=== PATIENT | female | born 1995 | race American Indian/Alaskan Native ===

== ENCOUNTER 2018-07-01 20:51 | Emergency (ER) | payer SELFPAY ==
[2018-07-01 21:40] LABS: Basophils # (Auto) 0.1 K/mm3 (0.0-0.1); Basophils % (Auto) 0.6 % (0.0-1.8); Eosinophils # (Auto) 0.1 K/mm3 (0.0-0.4); Eosinophils % (Auto) 1.1 % (0.0-4.3); Hematocrit 39.8 % (30.3-42.9); Hemoglobin 13.1 gm/dl (10.1-14.3); Lymphocytes # (Auto) 3.6 K/mm3 (1.2-5.4); Lymphocytes % (Auto) 43.6 % (13.4-35.0); Mean Corpuscular HGB Conc 33 % (30-34); Mean Corpuscular Volume 91 fl (79-97); Monocytes # (Auto) 0.6 K/mm3 (0.0-0.8); Monocytes % (Auto) 7.4 % (0.0-7.3); Platelet Count 333 K/mm3 (140-440); Red Blood Count 4.35 M/mm3 (3.65-5.03); Red Cell Distribution Width 13.5 % (13.2-15.2)
[2018-07-01 21:54] LABS: Alanine Aminotransferase 22 units/L (7-56); Albumin 4.2 g/dL (3.9-5); BUN/Creatinine Ratio 15; Blood Urea Nitrogen 12 mg/dL (7-17); Hemolysis Index 8
[2018-07-01] MEDS ORDERED: NACL 0.9% 1000 ML 1,000 ML IV ONE (23:10)
[2018-07-01] MEDS ORDERED: TORADOL IV ONE (23:10)
[2018-07-01] MEDS ORDERED: ZOFRAN IV ONE (23:10)
--- NOTE | 2018-07-01 23:17 | Emergency Department Report ---
ED Abdominal Pain HPI - General Chief Complaint: Abdominal Pain Stated Complaint: EMESIS/STOMACH PAIN/DIARRHEA Time Seen by Provider: 07/01/18 23:09 Source: patient Mode of arrival: Ambulatory Limitations: No Limitations - History of Present Illness Initial Comments: Patient 3-year-old female history of Crohn's diverticulitis status post appendectomy and gallstones and pancreatitis who presents with abdominal pain nausea and vomiting 3 days history of same last flare was 06/04/2018 patient is followed by [facility] last colonoscopy and EGD 1 month ago demonstrated Crohn's only no active diverticulitis patient denies GI bleeding at this time abdominal pain is 5/10 cramping aching S EtOH use was 1 month ago per patient has no fevers or chills patient states unable to tolerate by mouth. MD Complaint: abdominal pain Onset/Timin -: days(s) Location: LUQ Radiation: LUQ, LLQ, RLQ Migration to: periumbilical Severity: moderate Severity scale (0 -10): 6 Quality: cramping, aching Consistency: constant Improves With: nothing Worsens With: eating, movement Associated Symptoms: nausea, vomiting. denies: diarrhea, fever, constipation, dysuria, hematemesis, hematochezia, melena, hematuria Treatments Prior to Arrival: NSAIDs - Related Data LMP (females 10-50): last week Previous Rx's Medication Instructions Recorded Last Taken Type Promethazine [Phenergan TAB] 25 mg PO Q6HR #20 tablet 06/04/18 Unknown Rx traMADol [Ultram 50 MG tab] 50 mg PO Q6HR PRN #12 tablet 06/04/18 Unknown Rx Dicyclomine [Bentyl] 10 mg PO QID PRN #30 capsule 07/02/18 Unknown Rx Famotidine [Pepcid] 10 mg PO BID #30 tablet 07/02/18 Unknown Rx Tramadol HCl [Ultram] 50 mg PO QID PRN #12 tablet 07/02/18 Unknown Rx Allergies Allergy/AdvReac Type Severity Reaction Status Date / Time No Known Allergies Allergy Verified 06/03/18 19:51 ED Review of Systems ROS: Stated complaint: EMESIS/STOMACH PAIN/DIARRHEA Other details as noted in HPI Constitutional: denies: chills, fever Eyes: denies: eye pain, eye discharge, vision change ENT: denies: ear pain, throat pain Respiratory: denies: cough, shortness of breath, wheezing Cardiovascular: denies: chest pain, palpitations Endocrine: no symptoms reported Gastrointestinal: abdominal pain, vomiting. denies: nausea, diarrhea, melena Genitourinary: denies: urgency, dysuria, discharge Musculoskeletal: denies: back pain, joint swelling, arthralgia, myalgia Skin: denies: rash, lesions Neurological: denies: headache, weakness, paresthesias Psychiatric: denies: anxiety, depression Hematological/Lymphatic: denies: easy bleeding, easy bruising ED Past Medical Hx - Past Medical History Previous Medical History?: Yes Additional medical history: crohns. pancreatitis - Surgical History Past Surgical History?: Yes Hx Cholecystectomy: Yes Hx Appendectomy: Yes Additional Surgical History: pancreas - Social History Smoking Status: Never Smoker Substance Use Type: Alcohol - Medications Home Medications: Home Medications Medication Instructions Recorded Confirmed Last Taken Type Promethazine [Phenergan TAB] 25 mg PO Q6HR #20 tablet 06/04/18 Unknown Rx traMADol [Ultram 50 MG tab] 50 mg PO Q6HR PRN #12 tablet 06/04/18 Unknown Rx Dicyclomine [Bentyl] 10 mg PO QID PRN #30 capsule 07/02/18 Unknown Rx Famotidine [Pepcid] 10 mg PO BID #30 tablet 07/02/18 Unknown Rx Tramadol HCl [Ultram] 50 mg PO QID PRN #12 tablet 07/02/18 Unknown Rx ED Physical Exam - General Limitations: No Limitations General appearance: alert, in no apparent distress - Head Head exam: Present: atraumatic, normocephalic - Eye Eye exam: Present: normal appearance - ENT ENT exam: Present: mucous membranes moist - Neck Neck exam: Present: normal inspection - Respiratory Respiratory exam: Present: normal lung sounds bilaterally. Absent: respiratory distress, wheezes, stridor, chest wall tenderness - Cardiovascular Cardiovascular Exam: Present: regular rate, normal rhythm, normal heart sounds. Absent: systolic murmur, diastolic murmur, rubs, gallop - GI/Abdominal GI/Abdominal exam: Present: soft, tenderness (LUQ ), normal bowel sounds. Absent: distended, guarding, rebound, rigid, organomegaly, bruit, hernia - Expanded GI/Abdominal Exam Expanded GI/Abdominal exam: Absent: psoas sign, obturator sign, heel tap sign, Mac's sign, Rovsing's sign, tenderness at Mcburney's Point, ascites - Rectal Rectal exam: Present: deferred - Extremities Exam Extremities exam: Present: normal inspection - Back Exam Back exam: Present: normal inspection, full ROM. Absent: tenderness, CVA tenderness (R), CVA tenderness (L) - Neurological Exam Neurological exam: Present: alert, oriented X3, CN II-XII intact - Psychiatric Psychiatric exam: Present: normal affect, normal mood - Skin Skin exam: Present: warm, dry, intact, normal color. Absent: rash ED Course Vital Signs 07/01/18 21:14 Temperature 98.2 F Pulse Rate 77 Respiratory 16 Rate Blood Pressure 129/80 O2 Sat by Pulse 100 Oximetry ED Medical Decision Making - Lab Data Result diagrams: 07/01/18 21:32 07/01/18 21:32 - Radiology Data Radiology results: report reviewed, image reviewed FINDINGS: Visualized lower thorax: No significant abnormality. Liver: Normal size and attenuation. Spleen: Normal size and attenuation. Gallbladder and biliary system: There has been a cholecystectomy.. Pancreas: Normal. Adrenals: Normal. Kidneys: Normal. GI tract: There is no bowel obstruction, colitis or enteritis. There has been an appendectomy.. Lymph nodes and mesentery: There are borderline enlarged mesenteric lymph nodes suggesting possible mesenteric adenitis.. Vasculature: Normal. Bladder: Normal. Reproductive organs: Uterus is unremarkable. There is a 2.3 centimeter cyst in the left ovary.. Peritoneum: There is no ascites or free air, abscess or adenopathy.. Musculoskeletal structures: No significant abnormality. Other: None. IMPRESSION: There has been a cholecystectomy.. There is no biliary ductal dilatation. There is no bowel obstruction, colitis or enteritis. There has been an appendectomy.. There are borderline enlarged mesenteric lymph nodes suggesting possible mesenteric adenitis.. Uterus is unremarkable. There is a 2.3 centimeter cyst in the left ovary.. There is no ascites or free air, abscess or adenopathy.. - Medical Decision Making CT abdomen and pelvis is negative no bruits no bowel obstruction noted U findings plan DC home for prescription for Bentyl Ultram patient will continue to take PPIs and follow up with gastroenterology as scheduled patient verbalized agreement and understanding the same patient will be DC'd home in stable condition at this time there is no nausea vomiting and patient was tolerating by mouth intake. Patient appears well well hydrated and nontoxic. Critical care attestation.: If time is entered above; I have spent that time in minutes in the direct care of this critically ill patient, excluding procedure time. ED Disposition Clinical Impression: Abdominal pain Qualifiers: Abdominal location: left upper quadrant Qualified Code(s): R10.12 - Left upper quadrant pain Disposition: TO HOME OR SELFCARE Is pt being admited?: No Does the pt Need Aspirin: No Condition: Stable Instructions: Abdominal Pain (ED) Additional Instructions: follow up with [facility] as scheduled Prescriptions: Dicyclomine [Bentyl] 10 mg PO QID PRN #30 capsule PRN Reason: abdominal spasm Famotidine [Pepcid] 10 mg PO BID #30 tablet Tramadol HCl [Ultram] 50 mg PO QID PRN #12 tablet PRN Reason: pain Referrals: PRIMARY CARE, [Primary Care Provider] - 3-5 Days Forms: Work/School Release Form(ED) Time of Disposition: 01:35
[2018-07-02 00:04] LABS: Bilirubin,Urine NEG (Negative); Blood,Urine NEG (Negative); Color,Urine Straw (Yellow); Protein,Urine <15 mg/dL mg/dL (Negative); RBC,Urine < 1.0 /HPF (0.0-6.0); Urobilinogen,Urine < 2.0 mg/dL (<2.0); WBC,Urine < 1.0 /HPF (0.0-6.0)
[2018-07-02 00:56] LABS: HCG Qualitative,Urine Negative (Negative)
--- NOTE | 2018-07-02 01:28 | Cat Scan Report ---
FINAL REPORT PROCEDURE: CT ABDOMEN PELVIS W CON TECHNIQUE: Computerized axial tomography of the abdomen and pelvis was performed after the IV inject ion of iodinated nonionic contrast. HISTORY: abd pain crohns COMPARISON: 06/04/2018 FINDINGS: Visualized lower thorax: No significant abnormality. Liver: Normal size and attenuation. Spleen: Normal size and attenuation. Gallbladder and biliary system: There has been a cholecystectomy.. Pancreas: Normal. Adrenals: Normal. Kidneys: Normal. GI tract: There is no bowel obstruction, colitis or enteritis. There has been an appendectomy.. Lymph nodes and mesentery: There are borderline enlarged mesenteric lymph nodes suggesting possible m esenteric adenitis.. Vasculature: Normal. Bladder: Normal. Reproductive organs: Uterus is unremarkable. There is a 2.3 centimeter cyst in the left ovary.. Peritoneum: There is no ascites or free air, abscess or adenopathy.. Musculoskeletal structures: No significant abnormality. Other: None. IMPRESSION: There has been a cholecystectomy.. There is no biliary ductal dilatation. There is no bowel obstruction, colitis or enteritis. There has been an appendectomy.. There are borderline enlarged mesenteric lymph nodes suggesting possible mesenteric adenitis.. Uterus is unremarkable. There is a 2.3 centimeter cyst in the left ovary.. There is no ascites or free air, abscess or adenopathy..
[2018-07-02 02:21] VITALS: BP 113/58
== END 2018-07-02 02:21 | disposition home or self-care (01) ==
LOC: EDSEX → ED 20:51
DX: R10.12 Left upper quadrant pain (principal); R11.2 Nausea with vomiting, unspecified; K50.90 Crohn's disease, unspecified, without complications; Z90.49 Acquired absence of other specified parts of digestive tract
CPT/HCPCS: 36415; 74177; 80053; 81001; 81025; 83690; 84703; 85025; 96361; 96374; 96375; 99284; J1885; J2405; J7030; Q9967